=== PATIENT | female | born 1970 | race Caucasian/White ===

== ENCOUNTER 2016-12-03 20:25 | Emergency (ER) | payer BC ==
[~2016-12-03] VITALS: Ht 154.9 cm; Wt 67.1 kg
--- NOTE | 2016-12-03 21:09 | Emergency Room Report ---
History of Present Illness Time Seen by [id number] Presenting Problem in Triage Pt arrived:Walked Presenting Problem:RIGHT SIDED CHEST PRESSURE X 2 HOURS AGO, HAS BEEN MOVING BOXES AND BEEN UP ALL NIGHT. 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 N Clinical Suspician of Infection? Y Mental Status: 1 - Regular (Normal Baseline) Sepsis Risk:Severe Sepsis Risk Have you (or family members/close friends) recently traveled outside the [place]? N If Yes, where/when: Have you had exposure to infectious disease within the past month? N TB? Other? Specify: Source patient, RN notes reviewed, family, old records Exam Limitations no limitations Comment rt ant chest pain with cough and worse with insp had recently finished meds pred and omnicef - no rash or trauma and no hemoptysis Cardiac Chest Pain Chest pain indicative of cardiac No Timing/Duration this evening Severity moderate ALLERGIES Coded Allergies: No Known Drug Allergies (NKDA) (12/03/16) Home Medications Active Scripts SULFAMETHOXAZOLE/TRIMETHOPRIM (Sulfamethoxazole-Tmp Ds Tablet) 1 TAB PO BID #20 TAB Prov: 10/02/14 CEPHALEXIN (Keflex 500MG Capsule) 500 MG PO Q8H #30 CAP Prov: 10/02/14 MUPIROCIN 2% (Bactroban Oint) 1 MARTHA TP BID #1 TUBE Prov: 10/02/14 History Medical History General CAD? No Angina: No [place]: No Hypertension? No Hyperlipidemia? No CHF? No DVT? No PE? No COPD? No Asthma? No Anemia? No GERD? No Gastric ulcers? No GI Bleed? No Hernia? No Thyroid Problems? No Hypothyroidism? No CVA? No Seizures? No Diabetes? No Insulin Dependent: No Insulin Pump: No Home FSBS? No Renal Insuffiency? No End Stage Renal Disease? No UTI? No Stones? No BPH? No GB Disease: No Nephritic Syndrome? No Asplenia? No Hepatitis? No Sickle Cell Disease? No Arthritis? No Migraines? No Cataracts? No Glaucoma? No MRSA? No HIV? No TB? No Anxiety? No Depression? No Cancer? No More? 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 Respiratory see HPI, cough, shortness of breath, wheezing Cardiovascular see HPI, chest pain, denies palpitations, denies syncope Gastrointestinal denies abdominal pain, denies diarrhea, denies vomiting Genitourinary denies: dysuria, frequency, hesitancy, hematuria. Musculoskeletal denies back pain, denies joint pain, denies joint swelling, denies neck pain Skin denies rash Psychiatric/Neurological denies headache, denies seizure Physical Exam Vital Signs Vital Signs Date Time Temp Pulse Resp B/P Pulse O2 O2 Flow FiO2 Ox Delivery Rate 12/03 2228 87 16 124/77 96 12/03 2138 98.2 98 24 120/82 93 12/03 2136 24 12/04 2107 98.2 98 36 133/79 95 12/04 2031 36 97 12/03 2025 98.2 92 36 137/83 97 - WBC >12,000 or <4,000 or 10% bands? 2 or more SIRS Criteria Met? B/P:124/77 MAP:101 Creatinine >2.0? UA output<0.5ml/kg/hr for 2 hrs? Platelet count >100,000? Lactate >2.0mmol/1? INR >1.2 or PTT > than 60 sec? Evidence of Organ Dysfunction? Provider documented clinical suspician of infection? Y Sepsis Criteria Count: 2 Sepsis Risk: Severe Sepsis Risk General Appearance no apparent distress Eye Exam - bilateral eye PERRL, bilateral eye EOMI Ear, Nose, Throat normal ENT inspection Neck supple Respiratory Status No: respiratory distress. Lung Sounds bilateral: rhonchi, wheezing. 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 No Results/Orders Laboratory Tests 12/03/162129: Sodium 138, Potassium 3.5, Chloride 100, Carbon Dioxide 26, BUN 8, Creatinine 0.9, Estimated Creat Clear 84, Estimated GFR (MDRD) 68, Glucose 134 H, Calcium 9.5, Total Bilirubin 0.3, AST 16, ALT 27, Alkaline Phosphatase 127 H, Creatine Kinase 117, CK-MB (CK-2) Rel Index 0.4, CK and CKMB Interp < 0.5, Troponin I < 0.02, Total Protein 8.3 H, Albumin 4.2, Globulin 4.1 H, Albumin/Globulin Ratio 1.0 L, WBC 11.0 H, RBC 5.10, Hgb 15.2, Hct 44.9, MCV 88.1, RDW 14.6, Plt Count 307, Gran % 69.6, Gran # 7.7, Lymphocytes % 27.4, Monocytes % 3.0, Lymphocytes # 3.0, Monocytes # 0.3, PUBS MCHC 33.9, MCH 29.8 Current Medication Orders Sig/Jazmin Start time Last Medication Dose Route Stop Time Status Admin Albuterol 2 PUFFS ONCE ONE 12/03 2244 DC 12/03 IH 12/03 Miscellaneous 1 UNIT ONCE ONE 12/03 2244 DC 12/03 XX 12/03 Albuterol 0 .STK-MED ONE 12/04 2239 DC IH Miscellaneous 0 .STK-MED ONE 12/04 2239 DC XX Methylprednisolone 0 .STK-MED ONE 12/04 2123 DC Sodium Succinate .ROUTE Ketorolac 0 .STK-MED ONE 12/03 2122 DC Tromethamine .ROUTE Ketorolac 30 MG ONCE ONE 12/03 2114 DC 12/03 Tromethamine IV 12/03 Methylprednisolone 125 MG ONCE ONE 12/03 2114 DC 12/03 Sodium Succinate IV 12/03 Sodium Chloride 10 ML PRN PRN 12/03 2114 AC IV 12/04 2112 Ibuprofen 600 MG ONCE ONE 12/03 2044 DC 12/03 PO 12/03 Ibuprofen 0 .STK-MED ONE 12/03 2038 DC PO Albuterol/Ipratropium 0 .STK-MED ONE 12/03 2037 DC INH Albuterol/Ipratropium 3 ML ONCE ONE 12/03 2030 DC 12/03 INH 12/03 Orders Procedure Date/time Status RT REQUEST ALBUTEROL INHALER 12/04 2231 Active IV SALINE LOCK 12/03 2112 Active COMPLETE METABOLIC PANEL 12/03 2112 Complete CBC WITH AUTO DIFF 12/03 2112 Complete CARDIAC ENZYMES 12/03 2112 Complete RT REQUEST DUONEB 12/04 2027 Active CHEST(2 VIEWS-NOT PORTABLE) 12/04 2027 Active XRAY/CT/US XRAY/CT/US XRAY chest XR interpretation by reviewed by me Xray Results normal/NAD Departure Departure Time of Disposition 2251 Disposition DC Home or Self Care(routine) Clinical Impression Primary Impression: Bronchitis Secondary Impressions: Pleurisy Condition STABLE Referrals Rishbah Wadsworth MD (Family) Patient Instructions DI for Acute Bronchitis Additional Instructions use meds and see pcp this week for follow up Discharge Counseling Counseled pt/family regarding diagnosis, test results, medications/RX, follow up needs Prescriptions Current Visit Scripts Prednisone (Prednisone 20MG) 20 MG PO BID #10 TAB BENZONATATE (Benzonatate) 100 MG PO TID #21 CAP Azithromycin (Zithromycin (Z-LÓPEZ) 250MG Tab) 250 MG PO DAILY #6 TAB TAKE TWO (2) TABLETS ON DAY 1, THEN ONE (1) TABLET DAY #2 THRU #5 ED Critical Care Critical Care No at 2253
[2016-12-03 21:49] LABS: HEMOGLOBIN 15.2 g/dL (12.2-16.2)
[2016-12-03 21:50] LABS: LYMPH % 27.4 % (10-50.0)
[2016-12-03 22:10] LABS: BUN 8 mg/dL (7-18)
[2016-12-03 22:11] LABS: GFR (ESTIMATED) 68 ML/MIN (59-)
[2016-12-03 23:18] VITALS: BP 115/78
--- NOTE | 2016-12-04 07:58 | RADIOLOGY REPORT PS360 ---
CHEST(2 VIEWS-NOT PORTABLE) INDICATION: Nonproductive cough COMPARISON: PA and lateral chest 04/02/2007 FINDINGS: The lung espinosa are well expanded and appear clear of infiltrate. The cardiomediastinal silhouette and vascularity are normal. The costophrenic angles are clear. The bony thorax is normal. IMPRESSION: Normal chest.
--- OUTSIDE RECORDS SUMMARY | 2016-12-13 05:39 | External Medical Summary Rpt ---
Author Author [facility] Organization [facility] Address Unknown Phone Unavailable Care Team Providers Care Party Plan Sales Host/Hostess Name Role Phone JULIANNA, (REF) PCP [phone] Encounter JAKI DANIEL [id number] Date(s): 01/10/16 - 01/25/16 [facility] [address] [place] [address]- [phone] Discharge Diagnosis: Chronic pelvic pain of female Discharge Diagnosis: Dysmenorrhea Discharge Diagnosis: Dyspareunia Discharge Diagnosis: Stress incontinence, female Discharge Disposition: OP Self Care or Home Attending Physician: PHOEBE VELAZQUEZ MD Admitting Physician: PHOEBE VELAZQUEZ MD Referring Physician: PHOEBE VELAZQUEZ MD Reason for Visit URGENCY OF URINATION Vital Signs Most recent 1 2 3 to oldest [Reference Range]: Temperature Oral (01/25/16 Oral (01/25/16 Oral (01/25/16 Source 1:34 PM) 8:17 AM) 3:48 AM) Temperature Fahrenheit Fahrenheit Fahrenheit Mode (01/25/16 1:34 (01/25/16 8:17 (01/25/16 3:48 PM) AM) AM) Temperature, 97.9 Deg F 98.3 Deg F 98.0 Deg F Fahrenheit (01/25/16 1:34 (01/25/16 8:17 (01/25/16 3:48 [96.8-99.7 PM) AM) AM) Deg F] Clinical 36.6 Deg C 36.8 Deg C 36.7 Deg C Temperature, (01/25/16 1:34 (01/25/16 8:17 (01/25/16 3:48 C PM) AM) AM) Pulse Method Pulse Oximetry Non-Invasive BP (01/24/16 8:15 Device (01/19/16 AM) 10:46 AM) Pulse Rhythm Regular (01/19/16 10:46 AM) Peripheral 65 bpm (01/24/16 72 bpm (01/19/16 Pulse Rate 8:15 AM) 10:46 AM) [60-100 bpm] Heart Rate 56 bpm 52 bpm 50 bpm Monitored *LOW*(01/25/16 *LOW*(01/25/16 *LOW*(01/25/16 [60-100 bpm] 1:34 PM) 8:17 AM) 3:48 AM) Respiratory 16 Breaths/Min 16 Breaths/Min 16 Breaths/Min Rate [14-20 (01/25/16 1:34 (01/25/16 8:17 (01/25/16 3:48 Breaths/Min] PM) AM) AM) Blood Arm, left upper Arm, left upper Pressure (01/24/16 8:15 (01/19/16 10:46 Location AM) AM) Blood Non-Invasive BP Non-Invasive BP Pressure Device (01/24/16 Device (01/19/16 Source 8:15 AM) 10:46 AM) Blood Sitting (01/24/16 Sitting (01/19/16 Pressure 8:15 AM) 10:46 AM) Position Blood 123/61 mmHg 116/60 mmHg 108/76 mmHg Pressure (01/25/16 1:34 (01/25/16 8:17 (01/25/16 3:48 [90-140/60-9 PM) AM) AM) 0 mmHg] Mean 75 (01/25/16 1:34 74 (01/25/16 8:17 81 (01/25/16 3:48 Arterial PM) AM) AM) Pressure (MAP)-BMDI Oxygen 98 % (01/25/16 98 % (01/25/16 98 % (01/25/16 Saturation 1:34 PM) 8:17 AM) 3:48 AM) [94-100 %] Oxygen Room air Room air Nasal cannula Therapy Mode (01/25/16 9:00 (01/24/16 8:00 (01/24/16 2:40 AM) PM) PM) Oxygen Flow 2 Liter/Min 2 Liter/Min 2 Liter/Min Rate (01/24/16 2:40 (01/24/16 2:20 (01/24/16 2:05 PM) PM) PM) Problem List Condition Effective Status Health Informant Dates Status Gallbladder Active disease(Conf irmed) Dyspareunia( Active Confirmed) Hypotension( Active Confirmed) Nocturia(Con Active firmed) Urgency of Active urination(Co nfirmed) Allergies, Adverse Reactions, Alerts Substance Reaction Severity Status Eggs Abdominal pain Active Medications acetaminophen-oxyCODONE (Percocet 5/325 oral tablet) 1-2 Tab, Oral, Every 4 Hours, As Needed, as needed for pain, Refills: 0Ordering provider: PHOEBE VELAZQUEZ MD hyoscyamine (hyoscyamine 0.125 mg sublingual tablet)1 Tab, SubLINgual , Four Times A Day, As Needed, Abdominal Pain, Refills: 0 nitrofurantoin (Macrodantin 50 mg oral capsule)1 Cap, Oral, Every Day, 10 Day(s), Refills: 0Ordering provider: PHOEBE VELAZQUEZ MD Results GENERAL CHEMISTRY Most recent 1 2 to oldest [Reference Range]: Sodium Level 140 mmol/L [136-145 (01/19/16 11:37 AM) mmol/L] Potassium 4.0 mmol/L Level (01/19/16 11:37 AM) [3.5-5.1 mmol/L] Chloride 104 mmol/L Level (01/19/16 11:37 AM) [98-107 mmol/L] Carbon 24 mmol/L Dioxide (01/19/16 11:37 AM) Level [21-32 mmol/L] Anion Gap 16 [9-20] (01/19/16 11:37 AM) Glucose 98 mg/dL Level (01/19/16 11:37 AM) [74-106 mg/dL] Blood Urea 11 mg/dL Nitrogen (01/19/16 11:37 AM) [7-18 mg/dL] Creatinine 0.68 mg/dL Level (01/19/16 11:37 AM) [0.55-1.02 mg/dL] eGFR 114 mL/min/1.73m2 [>=60 (01/19/16 11:37 AM) mL/min/1.73m 2] eGFR 94 mL/min/1.73m2 NonAfrican (01/19/16 11:37 AM) [>=60 mL/min/1.73m 2] Bun/Creatini 16.2 ne (01/19/16 11:37 AM) [8.0-20.0] Calcium 8.9 mg/dL Level (01/19/16 11:37 AM) [8.5-10.1 mg/dL] HEMATOLOGY Most recent 1 2 to oldest [Reference Range]: WBC [4.2-9.1 8.4 K/uL K/uL] (01/19/16 11:37 AM) RBC 4.74 Million/uL [3.93-5.22 (01/19/16 11:37 AM) Million/uL] Hgb 11.9 Gram/dL 14.1 Gram/dL [11.2-15.7 (01/25/16 5:27 AM) (01/19/16 11:37 AM) Gram/dL] Hct 35.2 % 40.5 % [34.1-44.9 (01/25/16 5:27 AM) (01/19/16 11:37 AM) %] MCV 85.4 fL [79.0-94.8 (01/19/16 11:37 AM) fL] MCH 29.7 pg [25.6-32.2 (01/19/16 11:37 AM) pg] MCHC 34.8 Gram/dL [32.2-36.5 (01/19/16 11:37 AM) Gram/dL] Platelet 297 K/uL Count (01/19/16 11:37 AM) [163-369 K/uL] MPV 9.9 fL [9.4-12.4 (01/19/16 11:37 AM) fL] RDW 12.7 % [11.6-14.4 (01/19/16 11:37 AM) %] Neut % 54.9 % [34.0-71.0 (01/19/16 11:37 AM) %] Neut # 4.62 K/uL [1.56-6.13 (01/19/16 11:37 AM) K/uL] Lymph % 36.1 % [19.0-53.0 (01/19/16 11:37 AM) %] Lymph # 3.03 K/uL [1.18-3.74 (01/19/16 11:37 AM) K/uL] [place] % 5.6 % [4.7-12.5 %] (01/19/16 11:37 AM) [place] # 0.47 K/uL [0.24-0.82 (01/19/16 11:37 AM) K/uL] Eos % 2.9 % [1.0-7.0 %] (01/19/16 11:37 AM) Eos # 0.24 K/uL [0.04-0.54 (01/19/16 11:37 AM) K/uL] Baso % 0.5 % [0.0-1.0 %] (01/19/16 11:37 AM) Baso # 0.04 K/uL [0.01-0.08 (01/19/16 11:37 AM) K/uL] Slide Review No (01/19/16 11:37 AM) BLOOD BANK Most recent 1 2 to oldest [Reference Range]: ABO/Rh O POS *Unknown* (01/24/16 8:11 AM) ABO/Rh O POS Repeat *Unknown* (01/24/16 8:32 AM) Antibody Negative ABSC Screen (01/24/16 8:11 AM) (Tube) Immunizations No data available for this section Procedures Procedure Date Related Body Site Diagnosis BTL 1992 left breast lumpectomy with bx (benign) right ulnar shortening proceedures x 2 x 31 70127, 1991, 1992 Social History Social History Response Type Smoking Status Current every day smoker; Smoking Frequency Within Last 30 Days Five or more cigarettes per day; Tobacco Use Within Last Twelve Months Cigarettes; Years of Tobacco Use 27; Packs/Tins Daily .75; Second Hand Smoke Exposure Yes1 1Attempting patch to quit Assessment and Plan Extracted from: Title: Pharmacy Note- Author: VIVEK POE, Date: 01/25/16 Discharge Medications PharmD Pharmacy reviewed the patient's chart including labs, microbiology, vital signs, recent physician's notes, home medications, inpatient medications, and discharge medications for discrepancies. Please see the list below for home medications at discharge.Home Medications (3) Activehyoscyamine 0.125 mg sublingual tablet 0.125 mg = 1 Tab, PRN, SubLINgual, QIDMacrodantin 50 mg oral capsule 50 mg = 1 Cap, Oral, Daily (dischrge medication)Percocet 5/325 oral tablet 1-2 Tab, PRN, Oral, Q4H (discharge medication)Thanks,Vivek Poe, PharmD/MSCR Thanks, Vivek Poe, PharmD/MSCR Extracted from: Title: Freetext Note * Author: PHOEBE VELAZQUEZ Date: 01/25/16 S, pt doing well and ready for d/c. voiding well and pvr's slightly above 100cc. will continue voiding trials today. d/c instructions given and understood. f/u with me in 1wk. d/c meds, motrim, percocet and macrodantin. [facility] Discharge Instructions Patient EducationAnterior and Posterior Colporrhaphy, Care After Bilateral Salpingo-Oophorectomy, Care After Laparoscopically Assisted Vaginal Hysterectomy, Care After
--- OUTSIDE RECORDS SUMMARY | 2016-12-13 05:39 | External Medical Summary Rpt | CCD ---
Author Author , JUDITH WONG Address Unknown Phone Purpose Continuity of Care Document - 12-03-2016 through 2016
--- OUTSIDE RECORDS SUMMARY | 2016-12-13 05:39 | External Medical Summary Rpt ---
Author Author [facility] Organization [facility] Address Unknown Phone Unavailable Care Team Providers Care Sap Business Objects Consultant Name Role Phone JULIANNA, (REF) PCP [phone] Encounter JAKI DANIEL [id number] Date(s): 01/10/16 - 01/25/16 [facility] [address] [place] [address]- [phone] Discharge Diagnosis: Chronic pelvic pain of female [...] 3.03 K/uL [1.18-3.74 (01/19/16 11:37 AM) K/uL] [place] % 5.6 % [4.7-12.5 %] (01/19/16 11:37 AM) [place] # 0.47 K/uL [0.24-0.82 (01/19/16 11:37 AM) [...] ulnar shortening proceedures x 2 x 31 [id number], 1991, 1992 Social History Social History Response [...]
--- OUTSIDE RECORDS SUMMARY | 2016-12-13 05:39 | External Medical Summary Rpt ---
Author Author JUDITH Ann, [employer] Organization [employer] Address Unknown Phone Unavailable Results CBC W Auto Differential panel in Blood Observa Value Referen Units Interpr Notes Date tion ce etation Range Granulocy 1.8 - 7.8 K/mm3 Normal No Dec 2 beth informati 2017 9:30 [#/volume on in PM ] in source Blood by data Automated count Granulocy 37.0 - % Normal No Dec 2 beth/100 80.0 informati 2017 9:30 leukocyte on in PM s in source Blood by data Automated count Hematocri 37.0 - % Normal No Dec 03 t [Volume 47.0 informati 2017 9:30 on in PM Fraction] source of Blood data Hemoglobi 12.2 - g/dL Normal No Dec 03 n 16.2 informati 2017 9:30 [Mass/vol on in PM ume] in source Blood data Lymphocyt 0.7 - 4.5 K/mm3 Normal No Dec 2 es informati 2017 9:30 [#/volume on in PM ] in source Unspecifi data ed specimen by Automated count Lymphocyt 10 - 50.0 % Normal No Dec 03 es informati 2017 9:30 [#/volume on in PM ] in source Unspecifi data ed specimen by Automated count Erythrocy 27 - 31.2 pg Normal No Dec 2 te mean informati 2017 9:30 corpuscul on in PM ar source hemoglobi data n [Entitic mass] Erythrocy 31.8 - g/dl Normal No Dec 03 te mean 35.4 informati 2017 9:30 corpuscul on in PM ar source hemoglobi data n concentra tion [Mass/vol ume] by Automated count Erythrocy 82.2 - fL Normal No Dec 03 te mean 97.8 informati 2016 9:30 corpuscul on in PM ar volume source [Entitic data volume] by Automated count Monocytes 0.1 - 1.0 K/mm3 Normal No Dec 2 informati 2016 9:30 [#/volume on in PM ] in source Blood by data Automated count Monocytes 1.7 - 9.3 % Normal No Dec 03 informati 2017 9:30 leukocyte on in PM s in source Blood by data Automated count Platelets 142 - 424 K/mm3 Normal No Dec 2 informati 2016 9:30 [#/volume on in PM ] in source Blood data Erythrocy 4.2 - 5.4 M/mm3 Normal No Dec 2 beth informati 2016 9:30 [#/volume on in PM ] in source Amniotic data fluid Erythrocy 11.5 - % Normal No Dec 03 te 17.5 informati 2016 9:30 distribut on in PM ion width source [Entitic data volume] by Automated count Leukocyte 4.8 - K/mm3 High No Dec 2 s 10.8 informati 2016 9:30 [#/volume on in PM ] in source Blood data
--- OUTSIDE RECORDS SUMMARY | 2016-12-13 05:39 | External Medical Summary Rpt | CCD ---
Author Author , ADAL WONG Address Unknown Phone [email or web address] Purpose Continuity of Care Document - through 2016
--- OUTSIDE RECORDS SUMMARY | 2016-12-13 05:39 | External Medical Summary Rpt | CCD ---
Author Author , JUDITH WONG Address Unknown Phone [email or web address] Immunization Name Date Rout CVX Reac Dose Comm Prov Is Faci e tion ent ider Refu lity Give sed n Hep 03-1 43 999 Hist H109 No H109 B, 7-20 oric adul 15 al t Info rmat ion - Sour ce Unsp ecif ied Hep 10-2 43 999 Hist H109 No H109 B, 1-20 oric adul 14 al t Info rmat ion - Sour ce Unsp ecif ied Hep 09-1 43 999 Hist H109 No H109 B, 6-20 oric adul 14 al t Info rmat ion - Sour ce Unsp ecif ied
--- OUTSIDE RECORDS SUMMARY | 2016-12-13 05:39 | External Medical Summary Rpt | CCD ---
Author Author , JUDITH WONG Address Unknown Phone [email or web address] Immunization Name Date Rout CVX Reac Dose [...]
--- OUTSIDE RECORDS SUMMARY | 2016-12-13 05:39 | External Medical Summary Rpt | CCD ---
Author Author , JUDITH WONG Address Unknown Phone [email or web address] Purpose Continuity of Care Document - 12-03-2016 through 2016
--- OUTSIDE RECORDS SUMMARY | 2016-12-13 05:39 | External Medical Summary Rpt | CCD ---
Author Author , ADAL WONG Address Unknown Phone [email or web address] Purpose Continuity of Care Document - through 2016
== END 2016-12-03 23:19 | disposition home or self-care (01) ==
LOC: ER 20:25
PROVIDERS: Emergency Medicine
DX: J20.9 Acute bronchitis, unspecified (principal); R09.1 Pleurisy; F17.210 Nicotine dependence, cigarettes, uncomplicated

== ENCOUNTER 2016-12-08 22:46 | Emergency (ER) | payer BC ==
[~2016-12-08] VITALS: Ht 154.9 cm; Wt 67.1 kg
[~2016-12-08 22:46] MED LIST: BACTROBAN2% TP; KEFLEX 500MG.500 MG PO; PREDNISONE 20MG20 MG PO; SEPTRA DS 800 M1 TAB PO; TESSALON PERLE100 MG PO; ULTRAM50 MG PO; ZITHROMAX Z PA250 MG PO
--- NOTE | 2016-12-08 23:33 | Emergency Room Report ---
History of Present Illness Time Seen by [id number] Presenting Problem in Triage Pt arrived:Walked Presenting Problem:RIGHT GREAT TOE PAIN, REDNESS AND SWELLING. 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 N Clinical Suspician of Infection? N Mental Status: 1 - Regular (Normal Baseline) Sepsis Risk:Low Sepsis Risk Have you (or family members/close friends) recently traveled outside the [place]? N If Yes, where/when: Have you had exposure to infectious disease within the past month? N TB? Other? Specify: Source patient, RN notes reviewed, old records Exam Limitations no limitations Comment reddness and swelling rt great toe over the last few days w/o trauma Cardiac Chest Pain Chest pain indicative of cardiac No Timing/Duration this evening Severity moderate ALLERGIES Coded Allergies: No Known Drug Allergies (NKDA) (12/03/16) Home Medications Active Scripts SULFAMETHOXAZOLE/TRIMETHOPRIM (Sulfamethoxazole-Tmp Ds Tablet) 1 TAB PO BID #20 TAB Prov: 10/02/14 CEPHALEXIN (Keflex 500MG Capsule) 500 MG PO Q8H #30 CAP Prov: 10/02/14 MUPIROCIN 2% (Bactroban Oint) 1 MARTHA TP BID #1 TUBE Prov: 10/02/14 Prednisone (Prednisone 20MG) 20 MG PO BID #10 TAB Prov: 12/03/16 BENZONATATE (Benzonatate) 100 MG PO TID #21 CAP Prov: 12/03/16 Azithromycin (Zithromycin (Z-LÓPEZ) 250MG Tab) 250 MG PO DAILY #6 TAB Prov: 12/03/16 History Medical History General CAD? No Angina: No [place]: No Hypertension? No Hyperlipidemia? No CHF? No DVT? No PE? No COPD? No Asthma? No Anemia? No GERD? No Gastric ulcers? No GI Bleed? No Hernia? No Thyroid Problems? No Hypothyroidism? No CVA? No Seizures? No Diabetes? No Insulin Dependent: No Insulin Pump: No Home FSBS? No Renal Insuffiency? No End Stage Renal Disease? No UTI? No Stones? No BPH? No GB Disease: No Nephritic Syndrome? No Asplenia? No Hepatitis? No Sickle Cell Disease? No Arthritis? No Migraines? No Cataracts? No Glaucoma? No MRSA? No HIV? No TB? No Anxiety? No Depression? No Cancer? No More? 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 Respiratory denies cough, denies shortness of breath, denies wheezing Cardiovascular denies chest pain, denies syncope Gastrointestinal denies abdominal pain, denies diarrhea, denies vomiting Genitourinary denies: dysuria, frequency, hesitancy, hematuria. Musculoskeletal see HPI, denies back pain, joint pain, joint swelling, denies neck pain Skin denies rash, other Psychiatric/Neurological denies headache, denies seizure Physical Exam Vital Signs Vital Signs Date Time Temp Pulse Resp B/P Pulse O2 O2 Flow FiO2 Ox Delivery Rate 12/08 2307 98.4 79 20 159/91 98 - WBC >12,000 or <4,000 or 10% bands? 2 or more SIRS Criteria Met? B/P:159/91 MAP:113 Creatinine >2.0? UA output<0.5ml/kg/hr for 2 hrs? Platelet count >100,000? Lactate >2.0mmol/1? INR >1.2 or PTT > than 60 sec? Evidence of Organ Dysfunction? Provider documented clinical suspician of infection? N Sepsis Criteria Count: 1 Sepsis Risk: Low Sepsis Risk General Appearance no apparent distress Eye Exam - bilateral eye PERRL, bilateral eye EOMI Ear, Nose, Throat normal ENT inspection Neck supple Respiratory Status No: respiratory distress. 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 No Departure Departure Time of Disposition 2331 Disposition DC Home or Self Care(routine) Clinical Impression Primary Impression: Onychocryptosis Condition STABLE Referrals CARMELO LERMA DPM Patient Instructions DI for Infected Ingrown Toenail Additional Instructions use meds and see pcp or podiatry for follow up Prescriptions Current Visit Scripts CEPHALEXIN (Keflex 500MG Capsule) 500 MG PO Q8H #30 CAP SULFAMETHOXAZOLE/TRIMETHOPRIM (Sulfamethoxazole-Tmp Ds Tablet) 1 TAB PO BID #20 TAB HYDROCODONE/ACETAMINOPHEN ([place] 5-325 Tablet) 1 TAB PO Q6HP PRN pain #10 TAB ED Critical Care Critical Care No at 2348
--- NOTE | 2016-12-08 23:33 | Emergency Room Report ---
History of Present Illness Time Seen by [id number] Presenting Problem in Triage Pt arrived:Walked Presenting Problem:RIGHT GREAT TOE PAIN, REDNESS AND SWELLING. 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 N Clinical Suspician of Infection? N Mental Status: 1 - Regular (Normal Baseline) Sepsis Risk:Low Sepsis Risk Have you (or family members/close friends) recently traveled outside the [place]? N If Yes, where/when: Have you had exposure to infectious disease within the past month? N TB? Other? Specify: Source patient, RN notes reviewed, old records Exam Limitations no limitations Comment reddness and swelling rt great toe over the last few days w/o trauma Cardiac Chest Pain Chest pain indicative of cardiac No Timing/Duration this evening Severity moderate ALLERGIES Coded Allergies: No Known Drug Allergies (NKDA) (12/03/16) Home Medications Active Scripts SULFAMETHOXAZOLE/TRIMETHOPRIM (Sulfamethoxazole-Tmp Ds Tablet) 1 TAB PO BID #20 TAB Prov: 10/02/14 CEPHALEXIN (Keflex 500MG Capsule) 500 MG PO Q8H #30 CAP Prov: 10/02/14 MUPIROCIN 2% (Bactroban Oint) 1 MARTHA TP BID #1 TUBE Prov: 10/02/14 Prednisone (Prednisone 20MG) 20 MG PO BID #10 TAB Prov: 12/03/16 BENZONATATE (Benzonatate) 100 MG PO TID #21 CAP Prov: 12/03/16 Azithromycin (Zithromycin (Z-LÓPEZ) 250MG Tab) 250 MG PO DAILY #6 TAB Prov: 12/03/16 History Medical History General CAD? No Angina: No [place]: No Hypertension? No Hyperlipidemia? No CHF? No DVT? No PE? No COPD? No Asthma? No Anemia? No GERD? No Gastric ulcers? No GI Bleed? No Hernia? No Thyroid Problems? No Hypothyroidism? No CVA? No Seizures? No Diabetes? No Insulin Dependent: No Insulin Pump: No Home FSBS? No Renal Insuffiency? No End Stage Renal Disease? No UTI? No Stones? No BPH? No GB Disease: No Nephritic Syndrome? No Asplenia? No Hepatitis? No Sickle Cell Disease? No Arthritis? No Migraines? No Cataracts? No Glaucoma? No MRSA? No HIV? No TB? No Anxiety? No Depression? No Cancer? No More? 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 Respiratory denies cough, denies shortness of breath, denies wheezing Cardiovascular denies chest pain, denies syncope Gastrointestinal denies abdominal pain, denies diarrhea, denies vomiting Genitourinary denies: dysuria, frequency, hesitancy, hematuria. Musculoskeletal see HPI, denies back pain, joint pain, joint swelling, denies neck pain Skin denies rash, other Psychiatric/Neurological denies headache, denies seizure Physical Exam Vital Signs Vital Signs Date Time Temp Pulse Resp B/P Pulse O2 O2 Flow FiO2 Ox Delivery Rate 12/08 2307 98.4 79 20 159/91 98 - WBC >12,000 or <4,000 or 10% bands? 2 or more SIRS Criteria Met? B/P:159/91 MAP:113 Creatinine >2.0? UA output<0.5ml/kg/hr for 2 hrs? Platelet count >100,000? Lactate >2.0mmol/1? INR >1.2 or PTT > than 60 sec? Evidence of Organ Dysfunction? Provider documented clinical suspician of infection? N Sepsis Criteria Count: 1 Sepsis Risk: Low Sepsis Risk General Appearance no apparent distress Eye Exam - bilateral eye PERRL, bilateral eye EOMI Ear, Nose, Throat normal ENT inspection Neck supple Respiratory Status No: respiratory distress. 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 No Departure Departure Time of Disposition 2331 Disposition DC Home or Self Care(routine) Clinical Impression Primary Impression: Onychocryptosis Condition STABLE Referrals CARMELO LERMA DPM Patient Instructions DI for Infected Ingrown Toenail Additional Instructions use meds and see pcp or podiatry for follow up Prescriptions Current Visit Scripts CEPHALEXIN (Keflex 500MG Capsule) 500 MG PO Q8H #30 CAP SULFAMETHOXAZOLE/TRIMETHOPRIM (Sulfamethoxazole-Tmp Ds Tablet) 1 TAB PO BID #20 TAB HYDROCODONE/ACETAMINOPHEN ([place] 5-325 Tablet) 1 TAB PO Q6HP PRN pain #10 TAB ED Critical Care Critical Care No at 234
[2016-12-08] MEDS ORDERED: SEPTRA DS 800 M1 TAB PO (23:41)
[2016-12-08] MEDS ORDERED: KEFLEX 500MG.500 MG PO (23:41)
[2016-12-08] MEDS ORDERED: NORCO 325 MG-51 TAB PO (23:41)
[2016-12-09 00:09] VITALS: BP 142/78
--- OUTSIDE RECORDS SUMMARY | 2016-12-14 17:45 | External Medical Summary Rpt | CCD ---
Author Author , ADAL WONG Address Unknown Phone [email or web address] Purpose Continuity of Care Document - through 2016
--- OUTSIDE RECORDS SUMMARY | 2016-12-14 17:45 | External Medical Summary Rpt | CCD ---
Author Author , JUDITH WONG Address Unknown Phone [email or web address] Immunization Name Date Rout CVX Reac Dose [...]
--- OUTSIDE RECORDS SUMMARY | 2016-12-14 17:45 | External Medical Summary Rpt | CCD ---
Author Author , JUDITH WONG Address Unknown Phone [email or web address] Immunization Name Date Rout CVX Reac Dose [...]
--- OUTSIDE RECORDS SUMMARY | 2016-12-14 17:45 | External Medical Summary Rpt | CCD ---
Author Author , ADAL WONG Address Unknown Phone [email or web address] Purpose Continuity of Care Document - through 2016
--- OUTSIDE RECORDS SUMMARY | 2016-12-14 17:45 | External Medical Summary Rpt | CCD ---
Author Author , JUDITH WONG Address Unknown Phone [email or web address] Purpose Continuity of Care Document - 12-03-2016 through 2016
== END 2016-12-09 00:11 | disposition home or self-care (01) ==
LOC: ER 22:46
DX: L60.0 Ingrowing nail (principal); F17.210 Nicotine dependence, cigarettes, uncomplicated

== ENCOUNTER → 2017-02-11 | Outpatient (CLI) | payer BC ==
[~2017-02-11] MED LIST changes: +NORCO 325 MG-51 TAB PO
--- NOTE | 2017-02-11 13:31 | RADIOLOGY REPORT PS360 ---
FEMUR-LT-2 VIEWS HISTORY: Left femur pain LT HIP PAIN ORDERING PHYSICIAN: Carmelita Hopper APRN PATIENT AGE: 46 years COMPARISON: None FINDINGS: No fracture or dislocation. No lytic or blastic change. There is normal mineralization. The joint spaces are well-preserved. No significant degenerative/arthritic changes. No erosive changes evident. IMPRESSION: Negative, no acute finding
--- NOTE | 2017-02-11 13:32 | RADIOLOGY REPORT PS360 ---
HIP LT 2-3V W/PELVIS IF PERFOR HISTORY: LT HIP PAIN ORDERING PHYSICIAN: Carmelita Hopper APRN PATIENT AGE: 46 years COMPARISON: None FINDINGS: No fracture or dislocation is evident. No significant degenerative change. No lytic or blastic change. Unremarkable soft tissues IMPRESSION: Negative left hip
== END ==
LOC: RAD 12:39
DX: M25.552 Pain in left hip (principal)